=== PATIENT | male | born 1975 | race Caucasian/White ===

== ENCOUNTER 2023-11-15 23:44 | Emergency (ER) | payer MEDICAID, OTHER ==
[~2023-11-15] VITALS: Ht 175.3 cm; Wt 84.0 kg
[2023-11-15 23:48] VITALS: TEMP 97.8; O2SAT 97
[2023-11-16 00:30] VITALS: BP 105/72; PULSE 59; RESP 13; O2SAT 99
[2023-11-16] MEDS: SODIUM CHLORIDE 0.9% 1,000 ML IV ONE (01:10)
[2023-11-16 01:36] LABS: BASOPHILS % 0.3 % (0.0-2.0); EOSINOPHILS % 0.7 % (0.0-5.0); HEMATOCRIT. 37.5 % (42.0-52.0); HEMOGLOBIN. 12.9 g/dL (14.0-18.0); LYMPHOCYTES % 37.2 % (20.0-50.0); MEAN CORPUSCULAR HEMOGLOBIN 32.9 pg (28.0-32.0); MEAN CORPUSCULAR HGB CONC 34.3 g/dL (31.0-37.0); MEAN CORPUSCULAR VOLUME 95.7 fL (80.0-94.0); MEAN PLATELET VOLUME 10.1 fl (7.4-10.4); MONOCYTES % 7.9 % (2.0-8.0); NEUTROPHILS % 53.9 % (40.0-76.0); PLATELET 129 x1000/uL (130-400); RED BLOOD CELL COUNT 3.92 mill/uL (4.7-6.1); WHITE BLOOD COUNT 8.4 x1000/uL (4.5-11.0)
[2023-11-16 02:14] LABS: CHLORIDE 104 mEq/L (98-107); POTASSIUM 3.6 mEq/L (3.5-5.1); SODIUM 135 mEq/L (136-145)
[2023-11-16 02:15] LABS: CALCIUM 9.5 mg/dL (8.7-10.4); CARBON DIOXIDE 23 mEq/L (21-32)
[2023-11-16 02:20] LABS: CREATININE 1.1 mg/dL (0.6-1.3); UREA NITROGEN BLOOD 18 mg/dL (9-23)
[2023-11-16 02:21] LABS: ALANINE AMINOTRANSFERASE 28 IU/L (10-49); ALBUMIN 4.4 g/dL (3.2-4.8); ASPARTATE AMINOTRANSFERASE 25 IU/L (<34); BILIRUBIN DIRECT 0.3 mg/dL (<=3.0); BILIRUBIN TOTAL 0.9 mg/dL (0.1-1.0); PROTEIN TOTAL 7.3 g/dL (6.0-8.3)
[2023-11-16 02:39] LABS: ETHANOL BLOOD < 10 mg/dL (<10); GLUCOSE 308 mg/dL (70-105); TROPONIN I HIGH SENSITIVITY < 4 ng/L (3.0-53)
[2023-11-16] MEDS ORDERED: INSULIN REGULAR (HUMULIN R) 1000UNITS/10ML VIAL SUBCUT NR (03:15)
[2023-11-16] MEDS: INSULIN REGULAR (HUMULIN R) 1000UNITS/10ML VIAL SUBCUT NR (03:27)
[2023-11-16 05:12] LABS: BETA HYDROXYBUTYRATE 0.3 mMol/L (0.0-0.3)
== END 2023-11-16 03:50 ==
LOC: ER 23:44
DX: R73.9 Hyperglycemia, unspecified (principal); R46.2 Strange and inexplicable behavior; R45.1 Restlessness and agitation
CPT/HCPCS: 82962 ×2; 99291; 80076; 80048; 82010; 80320; 83930; 85025; 84484; 36415; 71045; 93005; 96360; 96361; 96372; J1815; J7030; G0480

== ENCOUNTER 2023-12-09 16:17 | Emergency (ER) | payer OTHER ==
[~2023-12-09] VITALS: Ht 170.2 cm; Wt 77.0 kg
[2023-12-09 16:20] VITALS: O2SAT 96
[2023-12-09] MEDS ORDERED: TOPUD PO (21:18)
[2023-12-09] MEDS ORDERED: IBUP-2028 MT (21:18)
[2023-12-09] MEDS: LORAZEPAM 1MG TABLET PO ONE (22:03)
[2023-12-09] MEDS: CHLORPROMAZINE HCL 25 MG TABLET PO ONE (22:04)
[2023-12-09] MEDS: LORAZEPAM 2MG/ML INJ IM ONE (22:18)
[2023-12-09] MEDS: DIPHENHYDRAMINE 50MG/ML VIAL IM ONE (22:18)
[2023-12-09 22:22] VITALS: BP 126/78; PULSE 100; RESP 16; TEMP 36.66960; O2SAT 99
[2023-12-10] MEDS ORDERED: TOPUD PO (10:21)
== END 2023-12-09 22:23 | disposition home or self-care (01) ==
LOC: ER 16:17
DX: S02.2XXA Fracture of nasal bones, initial encounter for closed fracture (principal); E11.9 Type 2 diabetes mellitus without complications; E78.00 Pure hypercholesterolemia, unspecified; I50.9 Heart failure, unspecified; X58.XXXA Exposure to other specified factors, initial encounter; Y93.89 Activity, other specified; Y92.89 Other specified places as the place of occurrence of the external cause; Y99.8 Other external cause status
CPT/HCPCS: 99284; 70450; 70486; Q0161

== ENCOUNTER 2023-12-10 02:56 | Emergency (ER) | payer OTHER ==
[~2023-12-10] VITALS: Ht 170.2 cm; Wt 68.0 kg
[~2023-12-10 02:56] MED LIST: IBUP-2028 MT; TOPUD PO
[2023-12-10 03:10] VITALS: O2SAT 97
[2023-12-10] MEDS: HALOPERIDOL LACTATE 5MG/ML VIAL IM SCH (05:54)
[2023-12-10] MEDS: LORAZEPAM 2MG/ML INJ IM SCH (05:54)
[2023-12-10] MEDS: ACETAMINOPHEN 325MG TABLET PO ONE (05:56)
[2023-12-10 06:51] VITALS: BP 135/82; PULSE 96; RESP 18; TEMP 36.66960; O2SAT 100
[2023-12-10] MEDS ORDERED: TOPUD PO (10:21)
[2023-12-10] MEDS: AMOXICILLIN/POTASSIUM CLAVULANATE 875/125MG TAB PO SCH (12:04)
== END 2023-12-10 14:30 | disposition home or self-care (01) ==
LOC: ER 03:02
DX: S02.2XXA Fracture of nasal bones, initial encounter for closed fracture (principal); S00.81XA Abrasion of other part of head, initial encounter; E11.9 Type 2 diabetes mellitus without complications; E78.5 Hyperlipidemia, unspecified; I50.9 Heart failure, unspecified; Y04.0XXA Assault by unarmed brawl or fight, initial encounter; Y93.89 Activity, other specified; Y92.89 Other specified places as the place of occurrence of the external cause; Y99.8 Other external cause status
CPT/HCPCS: 99285; 70450; 70486; 96372; J1630; J2060